=== PATIENT | male | born 1945 | race Caucasian/White ===

== ENCOUNTER → 2017-09-05 | Outpatient (CLI) | payer MEDICARE, OTHER ==
[~2017-09-05] MED LIST: ASPIR 8181 MG PO; ASPIRIN81 MG PO; FLAGYL250 MG PO; LEVAQUIN500 MG PO; LOSARTAN POTAS100 MG PO; NORCO 7.5-3251 EACH PO; PREDNISONE10 MG PO; ULTRAM 50MG50 MG PO; XANAX1 MG PO
--- NOTE | 2017-09-05 15:24 | Diagnostic Imaging Report ---
PROCEDURE:X-RAY ABDOMEN - KUB COMPARISON:Patients [facility], DX, ABDOMEN-1VIEW (KUB), 05/24/2017, 10:40. INDICATIONS:calculus of kidney FINDINGS: There is a non-obstructed bowel-gas pattern. Previously described left cortical renal calcification and renal calculi are not clearly identified on today's exam. There are no acute osseous abnormalities. The lung bases are clear. CONCLUSION: Previously described left cortical renal calcification and renal calculi are not clearly identified on today's exam. Emily Ambrose M.D. Dictated by: Emily Ambrose M.D. on 09/05/2017 at 15:33 Electronically approved by: Emily Ambrose M.D. on 09/05/2017 at 15:33
== END ==
LOC: RAD 13:54
PROVIDERS: ATTEND Urology
DX: N20.0 Calculus of kidney (principal)
CPT/HCPCS: 74018

== ENCOUNTER → 2017-11-09 | Outpatient (CLI) | payer MEDICARE, OTHER ==
[~2017-11-09] MED LIST changes: +ALLEGRA ALLERG180 MG PO; +CLONAZEPAM1 MG PO; +LOSARTAN-HCTZ1 EACH PO; +MULTIVITAMINS1 EAC7 PO; +NORCO 5-325 TA1 EACH PO; +ZANTAC150 MG PO
--- NOTE | 2017-11-09 16:54 | Diagnostic Imaging Report ---
PROCEDURE:TESTICULAR DOPPLER ULTRASOUND COMPARISON:Testicular ultrasound 03/22/2016 INDICATIONS:Hydrocele TECHNIQUE: Velez-scale and color doppler images of the testicles and scrotal contents were obtained. Duplex imaging with spectral waveform analysis was performed of the testicular arteries and veins. FINDINGS: Please see testicular ultrasound from the same date for combined dictation. CONCLUSION: Please see testicular ultrasound from the same date for combined dictation. Dictated by: Sherif Burroughs M.D. on 11/09/2017 at 16:55 Electronically approved by: Sherif Burroughs M.D. on 11/09/2017 at 16:55
--- NOTE | 2017-11-09 17:03 | Diagnostic Imaging Report ---
PROCEDURE:TESTICULAR ULTRASOUND and TESTICULAR DOPPLER COMPARISON:Testicular ultrasound . INDICATIONS:Hydrocele TECHNIQUE: Velez-scale and color doppler images of the testicles and scrotal contents were obtained. Duplex imaging with spectral waveform analysis was performed of the testicular arteries and veins. FINDINGS: RIGHT SCROTUM: Testicle: 3.9 x 2.3 x 2.9 cm. Epididymal head: 1.2 x 0.8 x 0.9 cm. Heterogeneous right epididymis with multiple echogenic foci which may represent microlithiasis versus mobile debris. Hydrocele: None. Varicocele: None. LEFT SCROTUM: Testicle: 4.5 x 2.5 x 3.0 cm. 0.4 x 0.2 x 0.3 cm isoechoic pedunculated lesion off the left testes consistent with a small appendix. Epididymal head: 1.0 x 0.6 x 0.9 cm. Hydrocele: Moderate left hydrocele with minimal debris. Varicocele: None. Arterial and venous blood flow is documented to the bilateral testicles. CONCLUSION: 1. New heterogeneous right epididymis with multiple echogenic foci which may represent microlithiasis and mobile debris. Recommend short-term followup in 3 months. 2. Unchanged moderate left hydrocele. Dictated by: Sherif Burroughs M.D. on 11/09/2017 at 17:03 Electronically approved by: Sherif Burroughs M.D. on 11/09/2017 at 17:03
== END ==
LOC: US 14:26
PROVIDERS: ATTEND Urology
DX: N43.3 Hydrocele, unspecified (principal)
CPT/HCPCS: 76870; 93976

== ENCOUNTER → 2017-11-17 | Day surgery (SDC) | payer MEDICARE, OTHER ==
[2017-11-16 11:54] LABS: BASOPHILS # (AUTO) 0.1 (0.0-0.1); BASOPHILS % 0.7 % (0.0-1.0); EOSINOPHILS # (AUTO) 0.3 (0.0-0.4); EOSINOPHILS % 3.6 % (0.0-6.0); HEMATOCRIT 42.7 % (38.2-49.6); LYMPHOCYTES # (AUTO) 2.3 (1.0-3.2); MEAN CORPUSCULAR HGB CONC 35.1 g/dL (31-35); MEAN CORPUSCULAR VOLUME 94.1 fL (81-99); MONOCYTES # (AUTO) 0.9 (0.2-0.8); MONOCYTES % 10.5 % (4.4-11.3); NEUTROPHILS # (AUTO) 4.6 (2.1-6.9); NEUTROPHILS % 56.8 % (38.7-80.0); PLATELET COUNT 241 x10e3/uL (140-360); RED BLOOD COUNT 4.54 x10e6/uL (4.3-5.7); RED CELL DISTRIBUTION WIDTH 13.3 % (11.7-14.4)
[2017-11-16 12:10] LABS: ANION GAP 14.2 mmol/L (8-16); CALCIUM 9.3 mg/dL (8.4-10.2); CREATININE, SERUM 1.65 mg/dL (0.72-1.25); POTASSIUM 4.2 mmol/L (3.5-5.1)
[~2017-11-17] MED LIST changes: +BUPIVACAINE HCL 0.5% INJ 30 ML VIAL INJ ONE; +CEFAZOLIN SOD 1 GM VIAL ONE; +DEXAMETHASONE SOD PHOS INJ 4 MG/ML VIAL ONE; +FENTANYL CITRATE/PF 100MCG/2 ML INJ ONE; +LIDOCAINE HCL 1% 30ML-PF VIAL ONE; +LIDOCAINE HCL 2% LOCAL INJ 5 ML SDV VIAL INJ ONE; +MIDAZOLAM HCL 2 MG/2 ML VIAL ONE; +MORPHINE SULFATE 2 MG/ML SYR ONE; +ONDANSETRON HCL INJ 2 MG/ML VIAL ONE; +PROPOFOL IV EMULSION 10 MG/ML 20 ML VIAL ONE; +SEVOFLURANE INHAL SOLN 250 ML PEN BTL ONE
--- OUTSIDE RECORDS SUMMARY | 2017-11-17 08:03 | XMS REPORT ---
Author Author [facility] Address Unknown Phone Unavailable Care Team Providers Care Damage Assessor Name Role Phone KHALIDA TEJADA Unavailable Unavailable JS DOMINIQUE Unavailable Unavailable Problems This patient has no known problems. Allergies, Adverse Reactions, Alerts This patient has no known allergies or adverse reactions. Medications This patient has no known medications. Results Test Description Test Time Test Comments Text Results Atomic Results Result Comments US TESTICULAR DOPPLER LTD [place] [address] Patient Name: DELFINA COLLINS MR #: [id number] : 1945 Age/Sex: 72/M Req #: [id number] [facility] Physician: Ordered by: KHALIDA TEJADA MD Report #: [id number] Location: Room/Bed: Procedure: [id number] US/US TESTICULAR DOPPLER LTD Exam Date: 11/09/17 Exam Time: 1609 REPORT STATUS: Signed PROCEDURE: TESTICULAR DOPPLER ULTRASOUND COMPARISON: Testicular ultrasound 03/22/2016 INDICATIONS: Hydrocele TECHNIQUE: Velez-scale and color doppler images of the testicles and scrotal contents were obtained. Duplex imaging with spectral waveform analysis was performed of the testicular arteries and veins. FINDINGS: Please see testicular ultrasound from the same date for combined dictation. CONCLUSION: Please see testicular ultrasound from the same date for combined dictation. Dictated by: Alice Rosen M.D. on 11/09/2017 at 16:55 Electronically approved by: Alice Rosen M.D. on 11/09/2017 at 16:55 Dictated By: ALICE ROSEN MD 54 Transcribed By: LEANNE on 11/09/171654 COPY TO: KHALIDA TEJADA MD US TESTICULAR [place] [address] Patient Name: DELFINA COLLINS MR #: [id number] : 1945 Age/Sex: 72/M Req # : [id number] Adm Physician: Ordered by: KHALIDA TEJADA MD Report #: [id number] Location: Room/Bed: Procedure: [id number] US/US TESTICULAR Exam Date: 11/09/17 Exam Time: 1609 REPORT STATUS: Signed PROCEDURE: TESTICULAR ULTRASOUND and TESTICULAR DOPPLER COMPARISON: Testicular ultrasound . INDICATIONS : Hydrocele TECHNIQUE: Velez-scale and color doppler images of the testicles and scrotal contents were obtained. Duplex imaging with spectral waveform analysis was performed of the testicular arteries and veins. FINDINGS: RIGHT SCROTUM: Testicle: 3.9 x 2.3 x 2.9 cm. Epididymal head: 1.2 x 0.8 x 0.9 cm. Heterogeneous right epididymis with multiple echogenic foci which may represent microlithiasis versus mobile debris. Hydrocele: None. Varicocele: None. LEFT SCROTUM: Testicle: 4.5 x 2.5 x 3.0 cm. 0.4 x 0.2 x 0.3 cm isoechoic pedunculated lesion off the left testes consistent with a small appendix. Epididymal head: 1.0 x 0.6 x 0.9 cm. Hydrocele: Moderate left hydrocele with minimal debris. Varicocele: None. Arterial and venous blood flow is documented to the bilateral testicles. CONCLUSION: 1. New heterogeneous right epididymis with multiple echogenic foci which may represent microlithiasis and mobile debris. Recommend short -term followup in 3 months. 2. Unchanged moderate left hydrocele. Dictated by: Alice Rosen M.D. on 11/09/2017 at 17:03 Electronically approved by: Alice Rosen M.D. on 11/09/2017 at 17:03 Dictated By: ALICE ROSEN MD 02 Transcribed By: LEANNE on 11/09/171702 COPY TO: KHALIDA TEJADA MD ABDOMEN-1VIEW (KUB) [place] [address] Patient Name: DELFINA COLLINS MR #: [id number] : 1945 Age/Sex: 71/M Req #: [id number] Adm Physician: Ordered by: KHALIDA TEJADA MD Report #: [id number] Location: RAD Room/Bed: Procedure: [id number] DX/ABDOMEN-1VIEW (KUB) Exam Date: 09/05/17 Exam Time: 1350 REPORT STATUS: Signed PROCEDURE: X-RAY ABDOMEN - KUB COMPARISON: [facility], DX, ABDOMEN-1VIEW (KUB), 2016, 10:40. INDICATIONS: calculus of kidney FINDINGS: There is a non-obstructed bowel-gas pattern. Previously described left cortical renal calcification and renal calculi are not clearly identified on today's exam. There are no acute osseous abnormalities. The lung bases are clear. CONCLUSION: Previously described left cortical renal calcification and renal calculi are not clearly identified on today's exam. Emily Kerr M.D. Dictated by: Emily Kerr M.D. on 09/05/2017 at 15:33 Electronically approved by: Emily Kerr M.D. on 09/05/2017 at 15:33 Dictated By: SHAUNA KERR MD, MD 1533 Transcribed By : LEANNE on 09/05/17 1533 COPY TO: KHALIDA TEJADA MD CHEST SINGLE (PORTABLE) [place] [address] Patient Name: DELFINA COLLINS MR #: [id number] : 1945 Age/Sex: 71/M Req #: [id number] Adm Physician: Ordered by: CARIN PACHECO CLAIM ADJUSTER Report #: [id number] Location: ER Room/Bed: Procedure: [id number] DX/CHEST SINGLE (PORTABLE) Exam Date: 07/10/17 Exam Time: 1035 REPORT STATUS: Signed PROCEDURE: A single AP view of the chest. COMPARISON: None. INDICATIONS: FLU LIKE SYMPTOMS FINDINGS: Lines/tubes: None. Lungs: The lungs are well inflated and clear. There is no evidence of pneumonia or pulmonary edema. Pleura: There is no pleural effusion or pneumothorax. Heart and mediastinum: The heart and the mediastinum are unremarkable. Bones: No acute bony abnormality. Degenerative changes of the thoracic spine. IMPRESSION: No acute radiographic abnormality. Dictated by: Fahad Rubin M.D. on 07/10/2017 at 11:15 Electronically approved by: Fahad Rubin M.D. on 07/10/2017 at 11:15 Dictated By: FAHAD RUBIN MD 1115 Transcribed By: LEANNE on 07/10/17 1115 COPY TO: CARIN PACHECO CLAIM ADJUSTER ABDOMEN-1VIEW (KUB) [place] [address] Patient Name: DELFINA COLLINS MR #: [id number] : 1945 Age/Sex: 71/M Req #: [id number] Adm Physician: Ordered by: KHALIDA TEJADA MD Report #: [id number] Location: [facility] Room/Bed: Procedure: [id number] DX/ABDOMEN-1VIEW (KUB) Exam Date: 05/24/17 Exam Time: 1040 REPORT STATUS: Signed PROCEDURE: X-RAY ABDOMEN - KUB COMPARISON: None. INDICATIONS: CALCULUS OF KIDNEY FINDINGS: Multiple calcifications projecting over the left renal shadows are unchanged, measuring up to 8 mm, some of which were shown to represent cortical calcifications on CT abdomen and pelvis 02/10/2016.. 4 mm calcification projects over the upper pole of the right renal shadow. Left hemipelvic round calcification is unchanged and likely represents a phlebolith. Bowel gas pattern is nonobstructive. No organomegaly. Regional skeletal structures are grossly intact. CONCLUSION: Unchanged left renal cortical calcification with additional nonobstructing left renal calculi. Right upper pole renal calculi as above. Dictated by: Eagle Barreto M.D. on 05/24/2017 at 11:30 Electronically approved by: Eagle Barreto M.D. on 05/24/2017 at 11:30 Dictated By: EAGLE BARRETO MD 113 Transcribed By: LEANNE on 05/24/171129 COPY TO: KHALIDA TEJADA MD
--- NOTE | 2017-11-17 10:02 | Operative Report ---
DATE OF PROCEDURE: November 17, 2017 PREOPERATIVE DIAGNOSIS: Left-sided hydrocele. POSTOPERATIVE DIAGNOSIS: Left-sided hydrocele with appendix testicle. PROCEDURES 1. Left-sided hydrocele repair (entirely separate procedure for diagnosis of left hydrocele). 2. Excision of left appendix testicle (entirely separate procedure for appendix testis). ANESTHESIA: General. ESTIMATED BLOOD LOSS: Minimal. COMPLICATIONS: None. INDICATIONS FOR PROCEDURE: Mr. Tobar is a 72-year-old male with symptomatic left-sided hydrocele, which has been growing in size. He and I had a long discussion regarding the alternatives, the risks and the benefits, including doing nothing, excision/repair. He voiced an understanding of the options, the alternatives, the risks and the benefits, including any indicated procedures, and he elected to proceed. PROCEDURE IN DETAIL: After informed consent was obtained, the patient was taken to the operative suite and placed supine on the operating table and underwent general anesthesia by the anesthesia service. The patient was placed in the supine position and sterilely prepped and draped in the standard fashion for the proposed surgery. An incision was made along the midline raphe, delivering the testicle extravaginally. The tunica vaginalis was then sharply incised, revealing approximately 100 mL of fluid. Capacity Manager section of the hydrocele sac was removed and sent off the table as a specimen. At this time, it was sewn back in a bottle-neck fashion to the inferior aspect. Of note, there was a very large, pendulous appendix testicle. This was excised with Bovie electrocautery and passed off the table as a separate specimen to prevent torsion. At this time, the patient's testicle was placed back in normal anatomic location and position. The wound was irrigated. The cremaster was closed with a running Vicryl stitch. The skin was closed with interrupted horizontal mattress 3-0 chromic gut sutures. The wound was dressed. The patient was awakened from anesthesia and transported to the recovery room in excellent condition. No untoward effects were noted. All sponge and instrument counts were correct times 2. Job#: [id number]
== END | disposition home or self-care (01) ==
LOC: OR 08:01
PROVIDERS: ATTEND Urology
DX: N43.3 Hydrocele, unspecified (principal); Q55.29 Other congenital malformations of testis and scrotum; I10 Essential (primary) hypertension; K21.9 Gastro-esophageal reflux disease without esophagitis; Z88.2 Allergy status to sulfonamides; J18.9 Pneumonia, unspecified organism; F41.9 Anxiety disorder, unspecified; Z01.812 Encounter for preprocedural laboratory examination
CPT/HCPCS: 36415; 54512; 55060; 80048; 85025; 88304; J0690; J1100; J2001; J2250; J2270; J2405

== ENCOUNTER → 2018-04-30 | Outpatient (CLI) | payer MEDICARE, OTHER ==
[~2018-04-30] MED LIST changes: -BUPIVACAINE HCL 0.5% INJ 30 ML VIAL INJ ONE; -CEFAZOLIN SOD 1 GM VIAL ONE; -DEXAMETHASONE SOD PHOS INJ 4 MG/ML VIAL ONE; -FENTANYL CITRATE/PF 100MCG/2 ML INJ ONE; -LIDOCAINE HCL 1% 30ML-PF VIAL ONE; -LIDOCAINE HCL 2% LOCAL INJ 5 ML SDV VIAL INJ ONE; -MIDAZOLAM HCL 2 MG/2 ML VIAL ONE; -MORPHINE SULFATE 2 MG/ML SYR ONE; -ONDANSETRON HCL INJ 2 MG/ML VIAL ONE; -PROPOFOL IV EMULSION 10 MG/ML 20 ML VIAL ONE; -SEVOFLURANE INHAL SOLN 250 ML PEN BTL ONE
--- NOTE | 2018-04-30 14:00 | Diagnostic Imaging Report ---
EXAMINATION: Scrotal ultrasound CLINICAL INDICATION: Spermatocele. COMPARISON: 11/09/2017. TECHNIQUE: Grayscale and color Doppler evaluation of the scrotum was performed in transverse and longitudinal planes. Supplemental color Doppler and spectral waveform analysis was performed FINDINGS: The right testicle measures 4.4 x 2.4 x 3 cm. Uniform echotexture without focal mass lesion.. The right epididymis measures 1.1 x 1.1 x 1 cm. Unchanged heterogeneous appearance of the right epididymis with multiple punctate echogenic foci seen throughout.. There is no evidence of right hydrocele or varicocele. There is normal arterial and venous flow to the right testicle, without evidence of torsion. The left testicle measures 4.2 x 2.7 x 2.9 cm. There are no masses or calcifications.. The left epididymis measures 1.2 x 1 x 0.8 cm. No nodules or masses.. There is no evidence of left varicocele. Stable moderate hydrocele. There is normal arterial and venous flow to the left testicle without evidence of torsion. The scrotum has a normal appearance, without focal lesions. Impression: Stable heterogeneity of the right epididymis with multiple punctate echogenic foci, which likely represent dystrophic calcifications or microlithiasis. Additional one-year follow-up scrotal ultrasound is suggested to document continued stability. No intratesticular masses. Stable moderate left hydrocele. Signed by: Dr. Vinicio Eldridge M.D. on 04/30/2018 1:57 PM
== END ==
LOC: US 12:50
PROVIDERS: ATTEND Urology
DX: N43.40 Spermatocele of epididymis, unspecified (principal)
CPT/HCPCS: 76870; 93976

== ENCOUNTER 2018-11-22 08:23 | Emergency (ER) | payer MEDICARE, OTHER ==
[~2018-11-22] VITALS: Ht 172.7 cm; Wt 124.7 kg
[2018-11-22 17:05] VITALS: BP 118/73
== END 2018-11-22 10:35 | disposition home or self-care (01) ==
LOC: ER 08:23
DX: R09.89 Other specified symptoms and signs involving the circulatory and respiratory systems (principal); T18.128A Food in esophagus causing other injury, initial encounter; I10 Essential (primary) hypertension; E11.9 Type 2 diabetes mellitus without complications; E78.5 Hyperlipidemia, unspecified
CPT/HCPCS: 99282

== ENCOUNTER → 2019-04-15 | Outpatient (CLI) | payer MEDICARE, OTHER ==
[~2019-04-15] MED LIST changes: +GADOBENATE DIMEGLUMINE 1 ML IV ONE
[2019-04-15 13:58] LABS: CREATININE, SERUM 1.46 mg/dL (0.72-1.25)
--- NOTE | 2019-04-15 15:39 | Diagnostic Imaging Report ---
TECHNIQUE: Magnetic resonance imaging of the left foot was performed without and with injected contrast. 20 cc of MultiHance. HISTORY: Pain COMPARISON: None available. DISCUSSION: No fracture. 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 Generalized soft tissue edema and swelling of the foot. No visualized mass or fluid collection. The intermetatarsal spaces are clear. No visualized neuroma. 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 Signed by: Dr. Kwaku Swanson M.D. on 04/15/2019 3:35 PM
== END ==
LOC: MRI 13:06
PROVIDERS: ATTEND Podiatrist
DX: R22.41 Localized swelling, mass and lump, right lower limb (principal)
CPT/HCPCS: 36415; 73720; 82565; 84520; A9577

== ENCOUNTER 2019-06-03 02:04 | Emergency (ER) | payer MEDICARE, OTHER ==
[~2019-06-03] VITALS: Ht 172.7 cm; Wt 124.7 kg
[~2019-06-03 02:04] MED LIST changes: -GADOBENATE DIMEGLUMINE 1 ML IV ONE
[2019-06-03 02:56] LABS: BILIRUBIN,URINE NEGATIVE (NEGATIVE); CLARITY,URINE CLEAR (CLEAR); COLOR,URINE YELLOW (YELLOW); KETONES,URINE NEGATIVE (NEGATIVE); LEUKOCYTE ESTERASE ,URINE NEGATIVE (NEGATIVE); NITRITE,URINE NEGATIVE (NEGATIVE); PROTEIN,URINE DIPSTICK NEGATIVE (NEGATIVE); URINE UROBILINOGEN 0.2 mg/dL (0.2 - 1)
[2019-06-03 03:08] LABS: RBC,URINE 0-5 /HPF (0-5); WBC,URINE (MAN) 0-5 /HPF (0-5)
--- NOTE | 2019-06-03 04:52 | Diagnostic Imaging Report ---
X-RAY CHEST 1 VIEW, X-RAY RIBS 3 VIEWS HISTORY: Pain. COMPARISON: None available. FINDINGS: Mild cardiomegaly. Lungs clear. No pleural effusion. Normal upper abdomen. Bones: Degenerative changes in the spine. No displaced rib fracture. Osseous alignment is within normal limits. Joints: The joint spaces are well-maintained. Soft tissues: The soft tissues appear unremarkable. IMPRESSION: No acute radiographic abnormality. Degenerative changes in the spine. Mild cardiomegaly. Signed by: Jose Min DO on 06/03/2019 4:49 AM
[2019-06-03] MEDS ORDERED: HYDROCODONE/APAP 5MG-325MG TAB PO ONE (05:00)
== END 2019-06-03 05:21 | disposition home or self-care (01) ==
LOC: ER 02:04
DX: M54.6 Pain in thoracic spine (principal); S29.011A Strain of muscle and tendon of front wall of thorax, initial encounter; S29.012A Strain of muscle and tendon of back wall of thorax, initial encounter; X50.0XXA Overexertion from strenuous movement or load, initial encounter; Y92.008 Other place in unspecified non-institutional (private) residence as the place of occurrence of the external cause; I10 Essential (primary) hypertension; E11.9 Type 2 diabetes mellitus without complications; E78.5 Hyperlipidemia, unspecified
CPT/HCPCS: 71101; 81001; 93005; 99283

== ENCOUNTER → 2019-09-27 | Outpatient (CLI) | payer MEDICARE, OTHER ==
--- NOTE | 2019-09-27 15:38 | Diagnostic Imaging Report ---
Exam: KUB - 2 views Indication: Renal calculi Comparison: None Findings: Multiple calcific densities overlying the left renal upper pole and mid pole measuring up to 7 mm. No radiographic apparent right renal calculi. Nonobstructive bowel gas pattern. No free air. Visualized lung bases appear clear. No acute osseous injury. Impression: Left upper and mid pole renal Ricardo George measure up to 7 mm. No radiographically apparent right renal calculi. Signed by: Miguel Ayoub MD on 09/27/2019 3:36 PM
== END ==
LOC: RAD 14:37
PROVIDERS: ATTEND Urology
DX: N20.0 Calculus of kidney (principal)
CPT/HCPCS: 74018

== ENCOUNTER → 2019-10-25 | Day surgery (SDC) | payer MEDICARE, OTHER ==
--- NOTE | 2019-10-22 12:01 | Diagnostic Imaging Report ---
EXAMINATION: CHEST 2 VIEWS INDICATION: History of kidney stone. ^[id number] ^1148 ^PRE OP CLEARANCE COMPARISON: 02/10/2016 FINDINGS: TUBES and LINES: None. LUNGS: Lungs are well inflated. Lungs are clear. There is no evidence of pneumonia or pulmonary edema. PLEURA: No pleural effusion or pneumothorax. HEART AND MEDIASTINUM: The cardiomediastinal silhouette is unremarkable. BONES AND SOFT TISSUES: No acute osseous lesion. Soft tissues are unremarkable. UPPER ABDOMEN: No free air under the diaphragm. IMPRESSION: No acute thoracic abnormality. Signed by: Dr. [place] M.D. on 10/22/2019 11:58 AM
[2019-10-22 12:18] LABS: BASOPHILS # (AUTO) 0.1 (0.0-0.1); BASOPHILS % 0.6 % (0.0-1.0); EOSINOPHILS # (AUTO) 0.1 (0.0-0.4); EOSINOPHILS % 1.7 % (0.0-6.0); HEMATOCRIT 43.3 % (38.2-49.6); HEMOGLOBIN 14.8 g/dL (14.0-18.0); LYMPHOCYTES % 23.8 % (18.0-39.1); MEAN CORPUSCULAR HEMOGLOBIN 33.3 pg (28-32); MEAN CORPUSCULAR HGB CONC 34.2 g/dL (31-35); MEAN CORPUSCULAR VOLUME 97.3 fL (81-99); MONOCYTES # (AUTO) 0.8 (0.2-0.8); MONOCYTES % 10.2 % (4.4-11.3); NEUTROPHILS # (AUTO) 5.2 (2.1-6.9); NEUTROPHILS % 63.3 % (38.7-80.0); PLATELET COUNT 268 x10e3/uL (140-360); RED BLOOD COUNT 4.45 x10e6/uL (4.3-5.7); RED CELL DISTRIBUTION WIDTH 14.5 % (11.7-14.4)
[2019-10-22 12:36] LABS: CALCIUM 9.2 mg/dL (8.4-10.2); CREATININE, SERUM 1.66 mg/dL (0.72-1.25)
[~2019-10-25] MED LIST changes: +ALLEGRA ALLERGY60 MG PO; +CEFTRIAXONE SOD 1 GM/NS 50 ML 50 ML IV ONE; +DEXAMETHASONE SOD PHOS INJ 4 MG/ML VIAL ONE; +LIDOCAINE HCL 2% LOCAL INJ 5 ML SDV VIAL INJ ONE; +PROPOFOL IV EMULSION 10 MG/ML 20 ML VIAL ONE; +SEVOFLURANE INHAL SOLN 250 ML PEN BTL ONE; +SYMBICORT 16010.2 GM INH
--- NOTE | 2019-10-25 08:12 | Operative Report ---
DATE OF PROCEDURE: 10/25/2019 SURGEON: Mauricio Vigil MD PREOPERATIVE DIAGNOSES: 1. Left kidney stones. 2. Left renal colic, requiring hydrocodone narcotic. POSTOPERATIVE DIAGNOSES: 1. Left kidney stones. 2. Left renal colic, requiring hydrocodone narcotic. PROCEDURE: Staged shockwave lithotripsy, left side. ANESTHESIA: General. ESTIMATED BLOOD LOSS: Minimal. COMPLICATIONS: None. INDICATIONS: Mr. Tobar is a very pleasant 74-year-old male with a history of colic on the left side, requiring narcotic hydrocodone for intermittent pain relief. The patient and I had an extensive discussion regarding the alternatives, risks, and benefits. As the patient has almost presented to the emergency room, he and I feel this procedure is immediately medically necessary to correct kidney stone condition without immediate performance of this procedure. He would be at risk for serious adverse medical consequences such as obstruction of the kidney, infections, presentation to the ER where he may expose to COVID-19, and hospitalization for narcotic pain relief. He voiced understanding the options, alternatives, the risks and benefits, and elected to proceed. PROCEDURE IN DETAIL: After informed consent was obtained, the patient was taken to the operative suite, placed in supine on the operating table, underwent general anesthesia by Anesthesia Service. Stone was localized in the X, Y, and Z planes. Treatment was performed per treatment report. The patient tolerated the procedure well and was transferred to the recovery room in excellent condition. Mauricio Vigil MD ES/MODL /[id number] cc:
[2019-10-25 08:20] VITALS: BP 143/71
--- NOTE | 2019-10-25 09:42 | Diagnostic Imaging Report ---
Exam: KUB - 2 views Indication: Preoperative Comparison: KUB of 09/27/2019 Findings: Again seen are left renal calculi measuring up to 7 mm. No radiographically apparent right renal calculi. Nonobstructive bowel gas pattern. No free air. No acute osseous injury. Mild degenerative changes of both hip joints, sacroiliac joint, lumbar spine. Impression: Unchanged left renal calculi. No radiographically apparent right renal calculi. Signed by: Miguel Ayoub MD on 10/25/2019 9:39 AM
== END | disposition home or self-care (01) ==
LOC: OR 05:04
PROVIDERS: ATTEND Urology
DX: N20.0 Calculus of kidney (principal); N40.1 Benign prostatic hyperplasia with lower urinary tract symptoms; N13.8 Other obstructive and reflux uropathy; R39.14 Feeling of incomplete bladder emptying; R35.1 Nocturia; N39.0 Urinary tract infection, site not specified; N52.9 Male erectile dysfunction, unspecified; N43.3 Hydrocele, unspecified; I10 Essential (primary) hypertension; E66.01 Morbid (severe) obesity due to excess calories; Z91.048 Other nonmedicinal substance allergy status; Z88.2 Allergy status to sulfonamides; Z01.810 Encounter for preprocedural cardiovascular examination; Z01.818 Encounter for other preprocedural examination; Z79.82 Long term (current) use of aspirin; Z68.41 Body mass index [BMI] 40.0-44.9, adult; Z87.891 Personal history of nicotine dependence; Z84.1 Family history of disorders of kidney and ureter
CPT/HCPCS: 36415; 50590; 71046; 74018; 80048; 85025; 93005; J0696; J1100; J2001; J2704

== ENCOUNTER 2020-02-04 02:29 | Inpatient (IN) | payer MEDICARE, OTHER ==
[~2020-02-04] VITALS: Ht 175.3 cm; Wt 139.7 kg
[~2020-02-04 02:29] MED LIST changes: -CEFTRIAXONE SOD 1 GM/NS 50 ML 50 ML IV ONE; -DEXAMETHASONE SOD PHOS INJ 4 MG/ML VIAL ONE; -LIDOCAINE HCL 2% LOCAL INJ 5 ML SDV VIAL INJ ONE; -PROPOFOL IV EMULSION 10 MG/ML 20 ML VIAL ONE; -SEVOFLURANE INHAL SOLN 250 ML PEN BTL ONE
[2020-02-04] MEDS ORDERED: PIPER-TAZ 3.375 GM 50 ML IV STA (02:42)
--- NOTE | 2020-02-04 02:44 | Emergency Department Note ---
History of Present Illnes History of Present Illness History of Present Illness This is a 74 year old male brought by EMS for evaluation of ingestion of 2 x vicodens prior to arrival . Arrival Mode: [place] Onset (how long ago): second(s) Severity: mild Onset quality: gradual Duration (how long): hour(s) Timing of current episode: constant Progression: unchanged Chronicity: new Relieving factors: none Exacerbating factors: none Associated symptoms: Reports other Treatments prior to arrival: none Past Medical/Family History Physician Review I have reviewed the patient's past medical and family history. Any updates have been documented here. Past Medical History Recent Fever: No Clinical Suspicion of Infectio: No New/Unexplained Change in Ment: No Past Medical History: Hypertension, Diabetes, Kidney Stones, Hyperlipedemia Other Medical History: Diverticulitis HERNIA Past Surgical History: Cholecysctectomy, Hernia Repair Other Surgery: DOUBLE HERNIA Social History Smoking Cessation: Never Smoker Alcohol Use: None Any Illegal Drug Use: No Other Last Tetanus: UNK Review of Systems Review of Systems Constitutional: Reports no symptoms EENTM: Reports no symptoms Cardiovascular: Reports no symptoms Respiratory: Reports no symptoms Gastrointestinal: Reports no symptoms Genitourinary: Reports no symptoms Musculoskeletal: Reports no symptoms Integumentary: Reports no symptoms Neurological: Reports no symptoms Psychological: Reports anxiety Endocrine: Reports no symptoms Hematological/Lymphatic: Reports no symptoms Physical Exam Related Data Allergies: Coded Allergies: Sulfa (Sulfonamide Antibiotics) (Verified Allergy, Unknown, 10/21/19) Vital signs reviewed: Yes Physical Exam CONSTITUTIONAL Constitutional: Present morbidly obese HENT HENT: Present normocephalic, Present atraumatic, Present oropharynx clear/moist, Present nose normal HENT L/R: Present left ext ear normal, Present right ext ear normal EYES Eyes: Reports PERRL, Reports conjunctivae normal NECK Neck: Present ROM normal PULMONARY Pulmonary: Present effort normal, Present breath sounds normal CARDIOVASCULAR Cardiovascular: Present irregular rhythm, Present tachycardia, Present LLE edema, Present RLE edema GASTROINTESTINAL Abdominal: Present soft, Present nontender, Present bowel sounds normal GENITOURINARY Genitourinary: Present exam deferred SKIN Skin: Present warm, Present dry MUSCULOSKELETAL Musculoskeletal: Present edema NEUROLOGICAL Neurological: Present alert, Present oriented x 3, Present no gross motor or sensory deficits PSYCHOLOGICAL Psychological: Present mood/affect normal, Present judgement normal Results Laboratory Lab results reviewed: Yes Laboratory comments Laboratory Tests Test 02/04/20 04:37 02/04/20 02:38 Urine Color Yellow (YELLOW) Urine Clarity Clear (CLEAR) Urine pH 5.5 (5 - 7) Urine Specific [place] 1.025 (1.010-1.025) Urine Protein Negative (NEGATIVE) Urine Glucose (UA) Negative (NEGATIVE) Urine Ketones Negative (NEGATIVE) Urine Blood Trace (NEGATIVE) Urine Nitrite Negative (NEGATIVE) Urine Bilirubin Negative (NEGATIVE) Urine Urobilinogen 0.2 mg/dL (0.2 - 1) Urine Leukocyte Esterase Negative (NEGATIVE) Urine RBC 6-10 /HPF (0-5) Urine WBC 6-10 /HPF (0-5) Urine Epithelial Cells Few /LPF (NONE) Urine Bacteria Few /HPF (NONE) Urine Mucus Many (RARE) Lactic Acid Level 2.9 mmol/L (0.5-2.0) 2.2 mmol/L (0.5-2.0) White Blood Count 16.26 x10e3/uL (4.8-10.8) Red Blood Count 4.33 x10e6/uL (4.3-5.7) Hemoglobin 14.2 g/dL (14.0-18.0) Hematocrit 42.7 % (38.2-49.6) Mean Corpuscular Volume 98.6 fL (81-99) Mean Corpuscular Hemoglobin 32.8 pg (28-32) Mean Corpuscular Hemoglobin Concent 33.3 g/dL (31-35) Red Cell Distribution Width 14.2 % (11.7-14.4) Platelet Count 279 x10e3/uL (140-360) Neutrophils (%) (Auto) 84.9 % (38.7-80.0) Lymphocytes (%) (Auto) 6.5 % (18.0-39.1) Monocytes (%) (Auto) 7.3 % (4.4-11.3) Eosinophils (%) (Auto) 0.4 % (0.0-6.0) Basophils (%) (Auto) 0.3 % (0.0-1.0) Neutrophils # (Auto) 13.8 (2.1-6.9) Lymphocytes # (Auto) 1.1 (1.0-3.2) Monocytes # (Auto) 1.2 (0.2-0.8) Eosinophils # (Auto) 0.1 (0.0-0.4) Basophils # (Auto) 0.1 (0.0-0.1) Absolute Immature Granulocyte (auto 0.09 x10e3/uL (0-0.1) Sodium Level 141 mmol/L (136-145) Potassium Level 4.1 mmol/L (3.5-5.1) Chloride Level 103 mmol/L (98-107) Carbon Dioxide Level 26 mmol/L (22-29) Anion Gap 16.1 mmol/L (8-16) Blood Urea Nitrogen 23 mg/dL (7-26) Creatinine 1.83 mg/dL (0.72-1.25) Estimat Glomerular Filtration Rate 37 ML/MIN (60-) BUN/Creatinine Ratio 13 (6-25) Glucose Level 107 mg/dL (74-118) Calcium Level 9.5 mg/dL (8.4-10.2) Total Bilirubin 0.7 mg/dL (0.2-1.2) Aspartate Amino Transf (AST/SGOT) 29 IU/L (5-34) Alanine Aminotransferase (ALT/SGPT) 31 IU/L (0-55) Alkaline Phosphatase 51 IU/L (40-150) Total Protein 7.0 g/dL (6.5-8.1) Albumin 4.1 g/dL (3.5-5.0) Globulin 2.9 g/dL (2.3-3.5) Albumin/Globulin Ratio 1.4 (0.8-2.0) Procedures 12 Lead ECG Interpretation ECG Interpretation : ECG: ECG 1 Fermentation Manager: Interpreted by ED physician Date: Feb 04, 2020 Time: 02:45 Rhythm: atrial fibrillation Rate: tachycardia BPM: 115 QRS axis: normal ST segments normal: Yes T waves normal: Yes Assessment & Plan Medical Decision Making MDM 74 yom with accidental ingestion of 2 x vicoden however upon arrival patient with fevers. Diff Dx : COVID-19 infection, sepsis, pneumonia, UTI considered. Source of fever undetermined. Plan to admit pending COVID-19 test Assessment & Plan Final Impression: (1) Renal insufficiency (2) Lactic acid acidosis (3) Fever (4) Atrial fibrillation Depart Disposition: ADMITTED Home Meds Active Scripts Cephalexin Monohydrate (KEFLEX) 500 Mg Capsule, 500 MG PO QID for 10 Days, #20 CAP 0 Refills Prov:ASHLEY PEOPLES FLEET MAINTENANCE MANAGER 02/06/20 Furosemide (FUROSEMIDE) 20 Mg Tablet, 20 MG PO DAILY for 14 Days, #14 TAB 0 Refills Prov:ASHLEY PEOPLES FLEET MAINTENANCE MANAGER 02/06/20 Acetaminophen (ACETAMINOPHEN) 325 Mg Tablet, 650 MG PO Q4H PRN for Mild Pain (1- 3) or Fever>100.8 for 14 Days, #30 TAB Prov:ASHLEY PEOPLES FLEET MAINTENANCE MANAGER 02/06/20 Reported Medications Fexofenadine Hcl (DONALD ALLERGY) 60 Mg Tablet, 60 MG PO DAILY THERAPEUTICALLY SUBSTITUTED WITH CLARITIN 10MG 10/25/19 Budesonide/Formoterol Fumarate (SYMBICORT 160-4.5 MCG INHALER) 10.2 Gm Hfa.aer.ad, 1 PUMP INH DAILY 10/21/19 Clonazepam (CLONAZEPAM) 1 Mg Tablet, 1 MG PO HS, TAB 11/16/17 Hydrocodone Bit/Acetaminophen (NORCO 5-325 TABLET) 1 Each Tablet, 1 EACH PO PRN, TAB 11/16/17 Losartan/Hydrochlorothiazide (LOSARTAN-HCTZ 50-12.5 MG TAB) 1 Each Tablet, PO DAILY 11/16/17 Aspirin (ASPIR 81) 81 Mg Tablet., 81 MG PO DAILY 04/27/16 EDIS QUINTANA DO Feb 04, 2020 02:44
[2020-02-04 03:05] LABS: BASOPHILS # (AUTO) 0.1 (0.0-0.1); BASOPHILS % 0.3 % (0.0-1.0); EOSINOPHILS # (AUTO) 0.1 (0.0-0.4); EOSINOPHILS % 0.4 % (0.0-6.0); HEMATOCRIT 42.7 % (38.2-49.6); HEMOGLOBIN 14.2 g/dL (14.0-18.0); LYMPHOCYTES # (AUTO) 1.1 (1.0-3.2); LYMPHOCYTES % 6.5 % (18.0-39.1); MEAN CORPUSCULAR HEMOGLOBIN 32.8 pg (28-32); MEAN CORPUSCULAR HGB CONC 33.3 g/dL (31-35); MEAN CORPUSCULAR VOLUME 98.6 fL (81-99); MONOCYTES # (AUTO) 1.2 (0.2-0.8); MONOCYTES % 7.3 % (4.4-11.3); NEUTROPHILS # (AUTO) 13.8 (2.1-6.9); NEUTROPHILS % 84.9 % (38.7-80.0); PLATELET COUNT 279 x10e3/uL (140-360); RED BLOOD COUNT 4.33 x10e6/uL (4.3-5.7); RED CELL DISTRIBUTION WIDTH 14.2 % (11.7-14.4)
[2020-02-04 03:24] LABS: ALBUMIN 4.1 g/dL (3.5-5.0); ALBUMIN/GLOBULIN RATIO 1.4 (0.8-2.0); ANION GAP 16.1 mmol/L (8-16); CALCIUM 9.5 mg/dL (8.4-10.2); CREATININE, SERUM 1.83 mg/dL (0.72-1.25); POTASSIUM 4.1 mmol/L (3.5-5.1)
[2020-02-04] MEDS ORDERED: SODIUM CHLORIDE 0.9% 1000ML 1,000 ML IV STA (03:25)
[2020-02-04] MEDS ORDERED: ACETAMINOPHEN 325 MG TAB PO ONE (04:15)
[2020-02-04 05:00] LABS: CLARITY,URINE CLEAR (CLEAR); COLOR,URINE YELLOW (YELLOW)
[2020-02-04 05:01] LABS: BILIRUBIN,URINE NEGATIVE (NEGATIVE); KETONES,URINE NEGATIVE (NEGATIVE); LEUKOCYTE ESTERASE ,URINE NEGATIVE (NEGATIVE); NITRITE,URINE NEGATIVE (NEGATIVE); PROTEIN,URINE DIPSTICK NEGATIVE (NEGATIVE); URINE UROBILINOGEN 0.2 mg/dL (0.2 - 1)
[2020-02-04 05:09] LABS: BACTERIA,URINE FEW /HPF; EPITHELIAL CELLS,URINE FEW /LPF
[2020-02-04 05:10] LABS: MUCUS,URINE MANY (RARE)
[2020-02-04] MEDS ORDERED: SODIUM CHLORIDE 0.9% 1000ML 1,000 ML IV ONE (05:45)
--- NOTE | 2020-02-04 07:33 | NUR ---
WALKING ROUNDS WITH CINDY HUTSON
[2020-02-04] MEDS ORDERED: ACETAMINOPHEN 325 MG TAB ONE (08:41)
--- NOTE | 2020-02-04 08:44 | Diagnostic Imaging Report ---
EXAMINATION: CHEST SINGLE (PORTABLE) INDICATION: Fever, shortness of breath COMPARISON: Chest radiograph of 10/22/2019 FINDINGS: LINES/TUBES:EKG leads overlie the chest. LUNGS:The lungs are well-inflated. No focal consolidation or pulmonary edema. The lateral costophrenic angles are excluded from the [id number]-vq-puvz. PLEURA:No pleural effusion or pneumothorax. MEDIASTINUM:The cardiomediastinal silhouette appears normal in size and shape. BONES/SOFT TISSUES:No acute osseous injury. ABDOMEN:No free air under the diaphragm. IMPRESSION: No focal pneumonia or pulmonary edema. Signed by: Miguel Ayoub MD on 02/04/2020 8:40 AM
[2020-02-04] MEDS: ACETAMINOPHEN 325 MG TAB PO PRN ×3 (08:45→20:47)
[2020-02-04] MEDS ORDERED: SODIUM CHLORIDE 0.9% 1000ML 1,000 ML IV SCH (09:15)
[2020-02-04] MEDS ORDERED: PIPER-TAZ 3.375 GM 50 ML IV ONE (09:15)
[2020-02-04] MEDS ORDERED: ONDANSETRON HCL INJ 2MG/ML 2ML 2 MG/ML VIAL IV PRN (09:30)
[2020-02-04] MEDS ORDERED: ASPIRIN 81 MG CHEW TAB PO ONE (09:30)
[2020-02-04 10:39] LABS: CREATINE KINASE MB 2.3 ng/mL (0-5.0)
[2020-02-04] MEDS: AZITHROMYCIN 500MG/NS 250 ML 250 ML IV SCH (11:01)
[2020-02-04] MEDS: SODIUM CHLORIDE 0.9% 1000ML 1,000 ML IV SCH ×2 (11:01→18:58)
[2020-02-04] MEDS: PIPER-TAZ 3.375 GM 50 ML IV SCH ×3 (11:01→22:27)
[2020-02-04 15:55] VITALS: BP 131/64
[2020-02-04 15:58] VITALS: BP 131/64
[2020-02-04 16:04] VITALS: BP 131/64
--- NOTE | 2020-02-04 17:11 | NUR ---
patient received from er via stretcher. see admit assess. sinus rhythm. NS at 100cc/hr. O2 3L [place]. vitals stable with no distress.
--- NOTE | 2020-02-04 18:59 | NUR ---
BSSR RECEIVED FROM RIOS HUTSON, PATIENT STABLE REMAINS ON DROPLET PRECAUTIONS, CURRENTLY RECEIVING IV HYDRATION 15CC/HR TOLERATING WELL, NO DISTRESS NOTED, CALL LIGHT WITHIN REACH, RESUME CARE OF PATIENT
[2020-02-04 19:05] LABS: CREATINE KINASE MB 9.5 ng/mL (0-5.0)
[2020-02-04 19:40] VITALS: BP 156/58
[2020-02-04] MEDS: HYDRALAZINE HCL 20 MG/ML VIAL IV PRN ×2 (20:31→20:47)
[2020-02-04 20:32] VITALS: BP 156/58
[2020-02-04 20:33] VITALS: BP 156/58
[2020-02-04] MEDS: CLONAZEPAM 1 MG TAB PO SCH (20:45)
[2020-02-04] MEDS: ENOXAPARIN SOD INJ 40 MG/0.4 ML SYR SC SCH (20:45)
[2020-02-04] MEDS: HYDROCODONE/APAP 5MG-325MG TAB PO PRN (23:10)
--- NOTE | 2020-02-04 23:27 | Diagnostic Imaging Report ---
EXAM: CT Chest WITHOUT contrast INDICATION: Leukocytosis, cough COMPARISON: Chest x-ray 02/04/2020 TECHNIQUE: Chest was scanned utilizing a multidetector helical scanner from the lung apex through the level of the adrenal glands without administration of IV contrast. Absence of intravenous contrast decreases sensitivity for detection of lymphadenopathy and vascular pathology. Coronal and sagittal reformations were obtained. Routine protocol was performed. IV CONTRAST: None COMPLICATIONS: None RADIATION DOSE: Total DLP: 488 mGy*cm Estimated effective dose: (DLP x 0.014 x size factor) mSv CTDIvol has been reviewed. It is below the limits set by the Radiation Protocol Committee (RPC). Dose modulation, iterative reconstruction, and/or weight based adjustment of the mA/kV was utilized to reduce the radiation dose to as low as reasonably achievable. FINDINGS: LINES/ TUBES: None. LUNGS AND AIRWAYS: Small benign callus for granuloma in the basal medial left lower lobe, otherwise the lungs are unremarkable. Mild smooth central bronchial wall thickening. PLEURA: The pleural spaces are clear. HEART AND MEDIASTINUM: The thyroid gland is normal. No mediastinal, hilar or axillary lymphadenopathy. The heart is normal in size. There is no pericardial effusion. Calcifications of the aorta and major branches including the coronary arteries. UPPER ABDOMEN: Partially visualized small nonobstructive bilateral renal calculi. Enlarged hypodense liver. BONES: Degenerative changes. SOFT TISSUES: Unremarkable. IMPRESSION: Subtle findings of bronchitis. Coronary artery calcific atherosclerosis. Small bilateral nonobstructive renal calculi. Hepatomegaly with hepatic steatosis. Signed by: Jose Min DO on 02/04/2020 11:24 PM
[2020-02-05] VITALS (9 sets, daily range): BP systolic 121–153; BP diastolic 55–82
--- NOTE | 2020-02-05 01:13 | NUR ---
Since pt was COVID negative, pt was requested to be transferred by Beauty Culturist Apprentice (Olinda Burden) from Rm 296 (covid room) to Rm 295 (non-covid room). Patient alert and oriented x3. Ambulatory with standby assist using walker. On IVF (NS at 125ml/hr). On scheduled IV antibiotic treatment. On 2L NC. Call orellana within reach.
--- NOTE | 2020-02-05 01:31 | NUR ---
BSSR GIVEN TO WESLY RN, PATIENT NEGATIVE COVID TRANSFERRED TO MED-SURG ROOM 295, CARE GIVEN OVER TO RN WESLY, UPDATED WITH PATIENT PLAN OF CARE, PENDING US LEFT LOWER EXTREMITY, BED ALARM IN PLACE, EDUCATED TO CALL DONT FALL, AM LABS ENDORSED TO WESLY FOR 5 AM
[2020-02-05] MEDS: SODIUM CHLORIDE 0.9% 1000ML 1,000 ML IV SCH ×3 (01:32→21:31)
[2020-02-05] MEDS: PIPER-TAZ 3.375 GM 50 ML IV SCH ×4 (04:18→22:25)
[2020-02-05] MEDS: BUDESONIDE/FORMOTEROL 160/4.5MCG INHALER INH SCH (07:00)
[2020-02-05 08:06] LABS: BASOPHILS # (AUTO) 0.1 (0.0-0.1); BASOPHILS % 0.5 % (0.0-1.0); EOSINOPHILS # (AUTO) 0.1 (0.0-0.4); EOSINOPHILS % 0.7 % (0.0-6.0); HEMATOCRIT 39.4 % (38.2-49.6); HEMOGLOBIN 12.7 g/dL (14.0-18.0); LYMPHOCYTES # (AUTO) 1.7 (1.0-3.2); LYMPHOCYTES % 16.3 % (18.0-39.1); MEAN CORPUSCULAR HEMOGLOBIN 32.7 pg (28-32); MEAN CORPUSCULAR HGB CONC 32.2 g/dL (31-35); MEAN CORPUSCULAR VOLUME 101.5 fL (81-99); MONOCYTES % 10.1 % (4.4-11.3); NEUTROPHILS # (AUTO) 7.4 (2.1-6.9); NEUTROPHILS % 71.9 % (38.7-80.0); PLATELET COUNT 192 x10e3/uL (140-360); RED BLOOD COUNT 3.88 x10e6/uL (4.3-5.7); RED CELL DISTRIBUTION WIDTH 14.6 % (11.7-14.4)
[2020-02-05 08:36] LABS: ALBUMIN 3.2 g/dL (3.5-5.0); ANION GAP 11.6 mmol/L (8-16); CALCIUM 8.3 mg/dL (8.4-10.2); CREATININE, SERUM 1.51 mg/dL (0.72-1.25); POTASSIUM 3.6 mmol/L (3.5-5.1)
[2020-02-05] MEDS: ASPIRIN 81 MG CHEW TAB PO SCH (09:03)
[2020-02-05] MEDS: LOSARTAN POTASSIUM 100 MG TAB PO SCH (09:04)
[2020-02-05] MEDS: LORATADINE 10 MG TAB PO SCH (09:04)
[2020-02-05] MEDS: HYDROCODONE/APAP 5MG-325MG TAB PO PRN (09:05)
[2020-02-05] MEDS: FAMOTIDINE 20 MG TAB PO SCH ×2 (09:11→17:30)
[2020-02-05 09:27] LABS: CHOL/HDL RATIO 3.8 (3.9-4.7)
[2020-02-05 09:47] LABS: THYROID STIMULATING HORMONE 0.921 uIU/mL (0.350-4.940)
--- NOTE | 2020-02-05 11:00 | Consultation ---
DATE OF CONSULTATION: Cardiac Consultation REASON FOR CONSULTATION: The patient is known to me, swelling of the left extremity, irregular heart rate noted on telemetry. HISTORY OF PRESENT ILLNESS: A 74-year-old gentleman, who is known with longstanding history of hypertension, anxiety, mild chronic renal insufficiency, and morbid obesity. The patient is seen and evaluated in our office in March of 2018, where at that time he had surgery for left hydrocele. He tolerated the surgery and he did well. He said he is followed by his PCP on monthly basis. The patient came to this institution because by mistake, he took 2 Vicodin. He was shaking after that and he is feeling jittery and anxious. He came to this institution. There was questionable fever and there was swelling of the left ankle and discoloration. His white blood cell count was elevated. He was given antibiotics. He was cultured, admitted for further management. Venous Doppler is ordered, but not done and cardiac consultation is obtained. On telemetry in the ER, it is noted the patient did have few irregular heart beating, so cardiac consultation is initiated. I visited with the patient, whom he denied categorically having any chest pain. He does have his usual easy fatigability. He said he twisted his ankle twice recently. He walks carefully with his walker. He is able to do sittings with walker at his own speed. At this level, there is no orthopnea, no paroxysmal nocturnal dyspnea, no syncope, and no presyncope. He said he was jittery. By mistake, he took 2 Vicodin and he was worried about it, so he came to the emergency room. He denied having any fever or any chills. REVIEW OF SYSTEMS: GENERAL: No fever. No chills. No weight loss. No weight gain. HEENT: Occasional lightheadedness, decreased hearing, and ringing in his ears. PULMONARY: Moderate shortness of breath on exertion. No pleuritic chest pain. No cough. No hemoptysis. CARDIAC: No angina. Feet swelling, which is chronic for him. He is asleep in a recliner because of back problem. GI: No hematemesis. No melena. : Increased frequency of urination. MUSCULOSKELETAL: Back pain, peripheral vascular, edema of the lower extremities. SKIN: No rashes. NEUROLOGICAL: Good memory. Abnormal gait. Walks with a walker. PAST MEDICAL HISTORY: 1. Hypertension. 2. Hypercholesterolemia. 3. Chronic renal insufficiency with baseline creatinine at 1.7 or so or 1.8. 4. Anxiety. 5. Kidney stone. 6. Bilateral inguinal hernia surgery. 7. Appendectomy. 8. Lithotripsy. 9. Left hydrocele surgery in 11/2017. SOCIAL HISTORY: He is . He stopped smoking in 2012. He was smoking one pack a day since age 19. No alcohol drinker. 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 He is taking care of his , who is having a little bit of dementia. HOME MEDICATIONS: Aspirin 81 mg a day, losartan/hydrochlorothiazide 50/12.5 one tablet a day, Nancy 180 mg a day, hydrocodone p.r.n., and Klonopin 0.5 mg at bedtime. ALLERGIES: SULFA. FAMILY HISTORY: Mother of breast cancer at age 55. Father at age 76 with CVA and myocardial infarction. No brothers, two sister, one of them is diabetic. Two healthy daughters. PHYSICAL EXAMINATION: VITAL SIGNS: Height of 5 feet 8 inches, weight of 280 pounds. Blood pressure 140/70, heart rate of 80, and respiratory rate of 18. HEENT: Pupils are equal and reactive. NECK: No elevation of jugular venous pulsation. CHEST: Clear to auscultation and percussion. HEART: PMI 5th left intercostal space. Normal first and second heart sounds. ABDOMEN: Soft with good bowel sounds. EXTREMITIES: No cyanosis. No clubbing. Mild peripheral edema. No Alexus sign. NEUROLOGICAL: Awake, alert, and oriented. No motor deficit. LABORATORY DATA: BUN of 23 and creatinine of 1.83. White blood cell counts are elevated at 16.2, hemoglobin 14.2, and hematocrit 43%. IMPRESSION AND PLAN: 1. The patient admitted following digestion of 2 Vicodin and he was very anxious about it. 2. Hypertensive heart disease. 3. Leg swelling and history of arthritis. 4. Obesity. 5. Abnormal gait. 6. Elevated white blood cell count and fever, started on antibiotics and he had culture. Cardiac swain, my recommendation is to continue his losartan, to continue his aspirin, deep venous thrombosis prophylaxis. We will review the venous Doppler when it is done. We will follow his blood culture and we will follow his progression with you. Case discussed and explained to the patient. Questions are answered. MD ANAY Goncalves/ELFEGO /[id number]
[2020-02-05] MEDS: AZITHROMYCIN 500MG/NS 250 ML 250 ML IV SCH (11:23)
[2020-02-05] MEDS: ENOXAPARIN SOD INJ 40 MG/0.4 ML SYR SC SCH (17:35)
[2020-02-05] MEDS: ACETAMINOPHEN 325 MG TAB PO PRN (18:21)
--- NOTE | 2020-02-05 19:00 | NUR ---
RECEIVED PATIENT IN BEDSIDE SHIFT REPORT. PATIENT RESTING IN RECLINER AT THIS TIME. NO PAIN NOTED. NO S&S OF DISTRESS NOTED. BED LOCKED IN LOWEST POSITION, SIDE RAILS UPX2, CALL LIGHT IN REACH.
--- NOTE | 2020-02-05 19:09 | NUR ---
BEDSIDE SHIFT REPORT GIVEN TO THE EDGE CUTTING MACHINE OPERATOR RN. PT DENIED FURTHER NEEDS.
[2020-02-05] MEDS: CLONAZEPAM 1 MG TAB PO SCH (21:31)
[2020-02-06] VITALS: BP 139/63
[2020-02-06] MEDS: HYDROCODONE/APAP 5MG-325MG TAB PO PRN (00:26)
[2020-02-06] MEDS: SODIUM CHLORIDE 0.9% 1000ML 1,000 ML IV SCH ×3 (01:30→10:50)
[2020-02-06 04:00] VITALS: BP 146/70
[2020-02-06] MEDS: PIPER-TAZ 3.375 GM 50 ML IV SCH ×3 (04:24→15:15)
[2020-02-06] MEDS: ACETAMINOPHEN 325 MG TAB PO PRN (05:14)
--- NOTE | 2020-02-06 05:24 | Progress Note ---
DATE: 02/05/2020 CONSULTING PHYSICIAN: Becky Jasso MD. SUBJECTIVE: The patient denies chills. States his left leg is tender at times and has an occasional cough. No fever. OBJECTIVE: VITAL SIGNS: From today, temperature 98.9, T-max 103.3, heart rate 91, blood pressure 153/73, respirations 20, oxygen saturation 98%. Intake and output 400 mL in and 1175 mL out. GENERAL: Supine, awake, and alert. LUNGS: Generally clear with some diminished bases, currently on room air. HEENT: EOMI. NECK: Supple. No JVD. CARDIOVASCULAR: Regular rate and rhythm without murmur. Normal saline infusing at 125 mL an hour. ABDOMEN: Soft. Bowel sounds x4 quads. No guarding. EXTREMITIES: No clubbing, cyanosis, or marked edema. He has left leg swelling and redness. NEUROLOGIC: GCS 15. Nonfocal. LABORATORY DATA: WBCs 10.33, hemoglobin 12.7, hematocrit 39.4, RBCs 3.88, platelets 192, neutrophils 71.9%. Sodium 139, potassium 3.6, chloride 107, CO2 24, BUN 15, creatinine 1.51, anion gap 11.6, estimated GFR 46, glucose 110. Hemoglobin A1c 5.5%. Lactic acid 1.4, calcium 8.3, magnesium 2.0, total bilirubin 0.7, AST 41, ALT 32, alkaline phosphatase 41, creatine kinase 510, CK-MB 5.0, troponin I 0.013. Total protein 6.4, albumin 3.2. Triglycerides 148, cholesterol 145, LDL 77, HDL 38. Thyroid-stimulating hormone 0.921. Lactic acid 1.4. Coronavirus PCR collected on 02/03, not detected. Blood cultures x2 show no growth after 48 hours. Preliminary urine culture is in progress with re-intubation required. CT of the chest done on 02/03 showed subtle findings of bronchitis, coronary artery calcific atherosclerosis, small bilateral nonobstructive renal calculi, hepatomegaly with hepatic steatosis. Today, bilateral lower extremity venous Doppler ultrasound was negative for DVT. ASSESSMENT/PLAN: 1. Sepsis with lactic acidosis, likely due to bronchitis and/or left lower extremity cellulitis. WBCs 10.3, improving. Continue Zosyn and azithromycin. Chest x-ray negative. Coronavirus negative. CT of the chest showed subtle findings of bronchitis. Isolation has been discontinued. 2. Inadvertent [place] ingestion, usually takes 1/2 tab [place], took 2 tabs at home, improving. 3. New onset atrial fibrillation with RVR, now heart rate control with heart rate in the 80s to 90s. Dr. Jasso's patient. Conveyor Operator following. 4. Left lower extremity swelling with cellulitis. Venous Doppler ultrasound negative for DVT. Continue antibiotics. 5. Acute kidney injury on chronic kidney disease stage 3, EGFR 46, creatinine 1.51. Continue IV fluids. Consider Nephrology consult if renal labs do not improve. BMP in a.m. 6. Controlled hypertension with chronic kidney disease stage 3, blood pressure 153/57. Continue losartan. Hold hydrochlorothiazide. 7. Chronic obstructive pulmonary disease without acute exacerbation. Symbicort resumed. Continue oxygen and wean to room air as tolerated. 8. Controlled type 2 diabetes mellitus with chronic kidney disease stage 3. Hemoglobin A1c 5.5%. Continue renal diabetic diet. Monitor fingerstick blood glucose before meals and at bedtime. 9. Morbid obesity with BMI of 41.8. Dietary restrictions, PT evaluation and treat. 10. Prophylaxis. Pepcid. TIME SPENT: 35 minutes. Billing code [id number]. Dictated by Jason Ocasio NP Dale Robles MD HWP/MODL /[id number]
[2020-02-06 05:54] LABS: BASOPHILS % 0.6 % (0.0-1.0); EOSINOPHILS # (AUTO) 0.2 (0.0-0.4); EOSINOPHILS % 3.4 % (0.0-6.0); HEMATOCRIT 35.7 % (38.2-49.6); HEMOGLOBIN 11.4 g/dL (14.0-18.0); LYMPHOCYTES # (AUTO) 1.7 (1.0-3.2); LYMPHOCYTES % 26.5 % (18.0-39.1); MEAN CORPUSCULAR HEMOGLOBIN 31.8 pg (28-32); MEAN CORPUSCULAR HGB CONC 31.9 g/dL (31-35); MEAN CORPUSCULAR VOLUME 99.7 fL (81-99); MONOCYTES % 15.2 % (4.4-11.3); NEUTROPHILS # (AUTO) 3.5 (2.1-6.9); PLATELET COUNT 211 x10e3/uL (140-360); RED BLOOD COUNT 3.58 x10e6/uL (4.3-5.7); RED CELL DISTRIBUTION WIDTH 14.7 % (11.7-14.4)
[2020-02-06 06:31] LABS: ANION GAP 11.8 mmol/L (8-16); CALCIUM 8.4 mg/dL (8.4-10.2); CREATININE, SERUM 1.37 mg/dL (0.72-1.25); POTASSIUM 3.8 mmol/L (3.5-5.1)
--- NOTE | 2020-02-06 06:45 | NUR ---
CALLED MD [facility] FOR PATIENT REQUEST OF A DOSE OF ANXIETY MEDS. NO ANSWER. WILL ATTEMPT AGAIN.
--- NOTE | 2020-02-06 07:30 | NUR ---
PT C/O REDNESS AND SWELLING ON LEFT LOWER EXTREMITY FROM YESTERDAY NIGHT. PAGED ASHLEY BHATTI AND INFORMED THE SAME.
[2020-02-06] MEDS: BUDESONIDE/FORMOTEROL 160/4.5MCG INHALER INH SCH (07:37)
[2020-02-06 08:36] VITALS: BP 139/64
[2020-02-06 08:53] VITALS: BP 139/64
[2020-02-06] MEDS: ASPIRIN 81 MG CHEW TAB PO SCH (09:04)
[2020-02-06] MEDS: LORATADINE 10 MG TAB PO SCH (09:04)
[2020-02-06] MEDS: LOSARTAN POTASSIUM 100 MG TAB PO SCH (09:05)
[2020-02-06] MEDS: FAMOTIDINE 20 MG TAB PO SCH ×2 (09:15→15:30)
[2020-02-06] MEDS: AZITHROMYCIN 500MG/NS 250 ML 250 ML IV SCH (10:50)
[2020-02-06 12:30] VITALS: BP 119/57
[2020-02-06] MEDS ORDERED: FUROSEMIDE20 MG PO (13:52)
[2020-02-06] MEDS ORDERED: ACETAMINOPHEN325 M1 PO (13:52)
[2020-02-06] MEDS ORDERED: KEFLEX500 MG PO (13:52)
[2020-02-06] MEDS ORDERED: ONDANSETRON HCL 4 MG ORAL DISINTEGRATING TAB PO PRN (14:15)
[2020-02-06] MEDS: ENOXAPARIN SOD INJ 40 MG/0.4 ML SYR SC SCH (16:00)
--- NOTE | 2020-02-06 16:03 | NUR ---
REVIEW OF SYSTEMS: GENERAL: No fever. No chills. No weight loss. No weight gain. HEENT: Occasional lightheadedness, decreased hearing, and ringing in his ears. PULMONARY: Moderate shortness of breath on exertion. No pleuritic chest pain. No cough. No hemoptysis. CARDIAC: No angina. Feet swelling, which is chronic for him. He is asleep in a recliner because of back problem. GI: No hematemesis. No melena. : Increased frequency of urination. MUSCULOSKELETAL: Back pain, peripheral vascular, edema of the lower extremities. SKIN: No rashes. NEUROLOGICAL: Good memory. Abnormal gait. Walks with a walker. PAST MEDICAL HISTORY: 1. Hypertension. 2. Hypercholesterolemia. 3. Chronic renal insufficiency with baseline creatinine at 1.7 or so or 1.8. 4. Anxiety. 5. Kidney stone. 6. Bilateral inguinal hernia surgery. 7. Appendectomy. 8. Lithotripsy. 9. Left hydrocele surgery in 11/2017. SOCIAL HISTORY: He is . He stopped smoking in 2012. He was smoking one pack a day since age 19. No alcohol drinker. 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 He is taking care of his , who is having a little bit of dementia. HOME MEDICATIONS: Aspirin 81 mg a day, losartan/hydrochlorothiazide 50/12.5 one tablet a day, Nancy 180 mg a day, hydrocodone p.r.n., and Klonopin 0.5 mg at bedtime. ALLERGIES: SULFA. FAMILY HISTORY: Mother of breast cancer at age 55. Father at age 76 with CVA and myocardial infarction. No brothers, two sister, one of them is diabetic. Two healthy daughters. [id number]
--- NOTE | 2020-02-06 16:50 | NUR ---
PT DISCHARGED HOME SAFELY WITH FAMILY MEMBER. TELE AND IV'S REMOVED. TIP INTACT. DRESSING APPLIED. D/C INSTRUCTIONS GIVEN. PT VERBALIZED UNDERSTANDING. RX GIVEN. PT ESCORTED BY THE TECH VIA WHEEL CHAIR TO THE PRIVATE AUTO AT THE FRONT ENTRANCE. PT DENIED FURTHER NEEDS.
--- NOTE | 2020-02-06 18:51 | Consultation ---
DATE OF CONSULTATION: HISTORY OF PRESENT ILLNESS: This is a 74-year-old gentleman, who has history of hypertension, anxiety, chronic kidney disease, and morbidly obese patient. The patient had surgery of his left hydrocele. The patient comes in with swelling of his left lower extremity. There was pus with no fever or chills. He was given antibiotic, venous Doppler was ordered. The patient is currently in the hospital. He is lying on bed. PAST MEDICAL HISTORY: Hypertension and anxiety. PAST SURGICAL HISTORY: As above. ALLERGIES: SULFA. SOCIAL HISTORY: There is no smoking, drug abuse, or alcohol abuse. FAMILY HISTORY: Otherwise unremarkable. MEDICATIONS: The patient is currently on Zosyn, Cozaar, and aspirin. PHYSICAL EXAMINATION: GENERAL: Currently alert and oriented, does not seem in acute distress. VITAL SIGNS: Stable, currently afebrile, when he first came in was 103. HEENT: He is not icteric. NECK: Supple. CHEST: Clear bilaterally. HEART: S1, S2. ABDOMEN: Soft. Bowel sounds present. EXTREMITIES: There is no edema. LABORATORY DATA: White count when he first came in was 16.2, came down to 5.6. His COVID-19 is negative. Blood cultures are otherwise unremarkable. IMPRESSION: Fever on admission. MD KRISTEN Huizar/ELFEGO /[id number]
--- NOTE | 2020-02-06 19:57 | Consultation ---
DATE OF CONSULTATION: ADDENDUM: Mr. Tobar who is a 74-year-old white male with history of obesity, comes in with some shortness of breath, but currently he is doing well and does not have redness on his right lower extremity. The patient was seen and examined. Chart reviewed. Discussed with the medical team at length. Please refer to my previous note. PLAN: He will be discharged home with Keflex 500 mg p.o. q.8 for 10 days. Keep the feet elevated, thigh-high elastic stocking to control his fluid heart condition. MD KRISTEN Huizar/ELFEGO /[id number]
--- NOTE | 2020-02-07 00:03 | Discharge Summary ---
PRIMARY CARE PHYSICIAN: Efraín Donnelly MD. CONSULTING PHYSICIANS: 1. Becky Jasso MD, with Cardiology. 2. Josh Griffiths MD, with Infectious Disease. CHIEF COMPLAINT: Fever and shaking after accidentally taking 2 Vicodin. HISTORY OF PRESENT ILLNESS: The patient is a 74-year-old male with history of fever for one day, who walked about a mile, had pain in his feet and took accidentally or inadvertently took 2 Vicodin. Instead of taking Tylenol, he took Vicodin or [place] by accident, which he thinks were 5 mg tablets. Afterwards he began to shake, which is new for him and he was anxious, but he normally takes 1/2 pill of the [place]. PAST MEDICAL HISTORY: Hypertension, diabetes, kidney stones, hyperlipidemia, diverticulitis, morbid obesity, anxiety, COPD, Nancy for seasonal allergies. PAST SURGICAL HISTORY: Appendectomy, cholecystectomy, double hernia repair on 10/24. He had staged shockwave lithotripsy of the left side. On 11/17/2017, he had a left hydrocele repair, excision of left appendix testicle. On 04/27/2016, he had a colonoscopy. FAMILY HISTORY: Mother of breast cancer at age 54. Father had an MT. SOCIAL HISTORY: History of tobacco use. is in her first stages of dementia and he takes care of her at home. ALLERGIES: SULFA. ADMITTING DIAGNOSES: 1. Sepsis with lactic acidosis, source unclear. 2. Accidental Vicodin ingestion. 3. New onset atrial fibrillation with rapid ventricular rate. 4. Controlled hypertension with chronic kidney disease 3. 5. Chronic obstructive pulmonary disease with acute exacerbation. 6. Controlled type 2 diabetes mellitus with chronic kidney disease 3. 7. Chronic kidney disease 3. 8. Morbid obesity with BMI of 41.8. DISCHARGE DIAGNOSES: 1. Sepsis with lactic acidosis, likely due to bronchitis and/or left lower extremity cellulitis. 2. Inadvertent [place] ingestion. 3. New onset atrial fibrillation with rapid ventricular rate, now heart rate controlled. 4. Left lower extremity swelling with cellulitis. 5. Acute kidney injury on chronic kidney disease stage 3. 6. Controlled hypertension with chronic kidney disease 3. 7. Chronic obstructive pulmonary disease without acute exacerbation. 8. Controlled type 2 diabetes mellitus with chronic kidney disease 3. 9. Chronic kidney disease 3. 10. Morbid obesity with BMI of 41.8. On 02/03; WBC 16.26, hemoglobin 14.2, hematocrit 42.7, platelets 279. ABG showed pH 7.30, pCO2 53.5, pO2 31, HC03 26.7,, total CO2 28, oxygen saturation 52%, base excess 0. Sodium 141, potassium 4.1, chloride 103, CO2 of 26, anion gap 16.1, BUN 23, creatinine 1.83, estimated GFR 37, calcium 9.5, total bilirubin 0.7, AST 29, ALT 31, alkaline phosphatase 51, total protein 7, albumin 4.1, lactic acid 2.2, then 2.9. First set of cardiac biomarkers was within normal limits. Second set; creatine kinase 509, CK-MB 9.5, troponin I 0.01 and the third set; creatine kinase is 510, CK-MB 5, troponin I 0.013. Urinalysis showed trace amount of blood and rbc's 6-10, wbc's 6-10, many mucus. Coronavirus was not detected. Blood cultures x2 showed no growth after 48 hours. Final urine culture negative. Chest x-ray showed no focal pneumonia or pulmonary edema. CT of the chest showed subtle findings of bronchitis, coronary artery calcific atherosclerosis, small bilateral nonobstructive renal calculi, hepatomegaly with hepatic steatosis. Hemoglobin A1c was 5.5%. Final lactic acid was 1.4. Lipid levels were not elevated. He was on Zosyn and azithromycin for the sepsis and droplet isolation was removed once coronavirus test came back negative. Did not seem to have any ill affects from the inadvertent ingestion of [place]. Heart rate, now controlled and no longer in RVR. Hydrochlorothiazide was held and losartan was continued for high blood pressure. He was on a renal ADA diet due to his underlying chronic kidney disease stage 3 and diabetes due to left lower extremity swelling and redness. Bilateral lower extremity venous Doppler ultrasound was completed with no evidence of DVT. Today on the day of discharge, temperature 98.6, heart rate 73, blood pressure 139/64, respirations 18, and oxygen saturation 100%. Today's labs; WBC 6.56, hemoglobin 11.4, hematocrit 35.7, platelets 211. Sodium 142, potassium 3.8, chloride 107, CO2 of 27, anion gap 11.8, BUN 14, creatinine 1.37, estimated GFR 51. Per previous lab results, his best estimated GFR on 02/12/2016 was 57. Serum glucose today 95, calcium 8.4. Physical exam, generally unchanged, although his redness in his left lower extremity appears to be improving. The patient to continue renal ADA diet for now. Activity level as tolerated. Follow up with PCP, Dr. Donnelly in 1-2 weeks. Follow up with Dr. Griffiths in 3 weeks. Case was discussed with Dr. Griffiths. We will send him home on Keflex 500 mg p.o. q.i.d. for 10 days. Also, send him home on Lasix 20 mg p.o. daily, Tylenol p.r.n. for possible fever. Follow up with Dr. Jasso with Cardiology as needed. Dictated by Jason Ocasio NP Dale Robles MD [id number]/[id number] /[id number]
[2020-02-07] MEDS ORDERED: FUROSEMIDE 20 MG TAB PO SCH (09:00)
[2020-02-07] MEDS ORDERED: AZITHROMYCIN 250 MG TAB PO SCH (11:00)
== END 2020-02-06 16:51 | disposition home or self-care (01) | DRG 871 ==
LOC: ER 03:00 → ERHOLD 09:17 → MED/SURG3 15:06
PROVIDERS: ADMIT Internal Medicine; ATTEND Internal Medicine
DX: A41.9 Sepsis, unspecified organism (principal); J18.9 Pneumonia, unspecified organism; J44.1 Chronic obstructive pulmonary disease with (acute) exacerbation; N17.9 Acute kidney failure, unspecified; Z68.41 Body mass index [BMI] 40.0-44.9, adult; I13.0 Hypertensive heart and chronic kidney disease with heart failure and stage 1 through stage 4 chronic kidney disease, or unspecified chronic kidney disease; J44.0 Chronic obstructive pulmonary disease with (acute) lower respiratory infection; E87.2 Acidosis; E11.22 Type 2 diabetes mellitus with diabetic chronic kidney disease; N18.3 Chronic kidney disease, stage 3 (moderate); E66.01 Morbid (severe) obesity due to excess calories; I48.91 Unspecified atrial fibrillation; Z79.01 Long term (current) use of anticoagulants; Z11.59 Encounter for screening for other viral diseases; I25.10 Atherosclerotic heart disease of native coronary artery without angina pectoris; R16.0 Hepatomegaly, not elsewhere classified; K76.0 Fatty (change of) liver, not elsewhere classified; N20.0 Calculus of kidney; E78.00 Pure hypercholesterolemia, unspecified; I13.10 Hypertensive heart and chronic kidney disease without heart failure, with stage 1 through stage 4 chronic kidney disease, or unspecified chronic kidney disease; M19.91 Primary osteoarthritis, unspecified site; T40.2X1A Poisoning by other opioids, accidental (unintentional), initial encounter; Z88.2 Allergy status to sulfonamides
CPT/HCPCS: 36415; 71045; 71250; 80048; 80053; 80061; 81001; 82550; 82553; 83036; 83605; 83735; 84443; 84484; 85025; 87040; 87086; 87635; 93005; 93970; 94664; 97139; 99284; J0360; J0456; J1650; J2543; J7030

== ENCOUNTER 2020-11-14 20:20 | Emergency (ER) | payer MEDICARE, OTHER ==
[~2020-11-14] VITALS: Ht 175.3 cm; Wt 139.7 kg
[~2020-11-14 20:20] MED LIST changes: +ACETAMINOPHEN325 M1 PO; +FUROSEMIDE20 MG PO; +KEFLEX500 MG PO
== END 2020-11-14 20:55 | disposition home or self-care (01) ==
LOC: ER 20:42
DX: S51.812A Laceration without foreign body of left forearm, initial encounter (principal); W22.03XA Walked into furniture, initial encounter; Y93.01 Activity, walking, marching and hiking; Y92.008 Other place in unspecified non-institutional (private) residence as the place of occurrence of the external cause; I10 Essential (primary) hypertension; J44.9 Chronic obstructive pulmonary disease, unspecified; E66.9 Obesity, unspecified; Z87.442 Personal history of urinary calculi
CPT/HCPCS: 99282

== ENCOUNTER 2022-11-24 17:52 | Observation (INO) | payer MEDICARE, OTHER ==
[~2022-11-24] VITALS: Ht 175.3 cm; Wt 139.7 kg
[2022-11-24] MEDS ORDERED: ONDANSETRON HCL INJ 2MG/ML 2ML 2 MG/ML VIAL IV STA (18:33)
[2022-11-24 18:43] LABS: BASOPHILS % 0.2 % (0.0-1.0); EOSINOPHILS # (AUTO) 0.1 (0.0-0.4); EOSINOPHILS % 0.8 % (0.0-6.0); HEMATOCRIT 46.6 % (38.2-49.6); HEMOGLOBIN 15.5 g/dL (14.0-18.0); LYMPHOCYTES # (AUTO) 0.5 (1.0-3.2); LYMPHOCYTES % 3.4 % (18.0-39.1); MEAN CORPUSCULAR HEMOGLOBIN 32.2 pg (28-32); MEAN CORPUSCULAR HGB CONC 33.3 g/dL (31-35); MEAN CORPUSCULAR VOLUME 96.7 fL (81-99); MONOCYTES % 6.5 % (4.4-11.3); NEUTROPHILS # (AUTO) 13.7 (2.1-6.9); NEUTROPHILS % 88.9 % (38.7-80.0); PLATELET COUNT 224 x10e3/uL (140-360); RED BLOOD COUNT 4.82 x10e6/uL (4.3-5.7); RED CELL DISTRIBUTION WIDTH 14.3 % (11.7-14.4)
[2022-11-24] MEDS ORDERED: SODIUM CHLORIDE 0.9% 1000ML 1,000 ML IV ONE (18:45)
[2022-11-24 19:05] LABS: ALBUMIN 4.1 g/dL (3.5-5.0); ALBUMIN/GLOBULIN RATIO 1.2 (0.8-2.0); ANION GAP 17.5 mmol/L (8-16); CALCIUM 9.6 mg/dL (8.4-10.2); CREATININE, SERUM 1.48 mg/dL (0.72-1.25); POTASSIUM 4.5 mmol/L (3.5-5.1)
[2022-11-24] MEDS ORDERED: ONDANSETRON HCL INJ 2MG/ML 2ML 2 MG/ML VIAL IV PRN (21:45)
[2022-11-24] MEDS ORDERED: ACETAMINOPHEN 1000 MG/100 ML IV PRN (21:45)
[2022-11-24] MEDS: METRONIDAZOLE 500MG/NS 100ML 100 ML IV SCH (22:23)
[2022-11-24] MEDS: SODIUM CHLORIDE 0.9% 1000ML 1,000 ML IV SCH (22:24)
[2022-11-24] MEDS: Morphine 4mg INJECTION 4 MG/ML INJ IV PRN (22:29)
[2022-11-25] VITALS (11 sets, daily range): BP systolic 141–155; BP diastolic 61–76
[2022-11-25] MEDS ORDERED: ALLOPURINOL100 MG PO (02:05)
[2022-11-25] MEDS ORDERED: PRAMIPEXOLE D0.25 MG PO (02:05)
[2022-11-25] MEDS ORDERED: NIFEDIPINE ER30 M1 PO (02:05)
[2022-11-25] MEDS ORDERED: BENICAR20 MG PO (02:05)
[2022-11-25] MEDS ORDERED: HYDROCODON-ACE1 EAC9 (02:05)
[2022-11-25] MEDS ORDERED: ZANTAC-360 (FAM20 MG (02:05)
[2022-11-25] MEDS ORDERED: CENTRUM ADULTS1 EACH PO (02:05)
[2022-11-25] MEDS ORDERED: METOPROLOL SUCC50 MG PO (02:05)
[2022-11-25] MEDS: Morphine 4mg INJECTION 4 MG/ML INJ IV PRN ×4 (03:46→17:44)
[2022-11-25] MEDS: METRONIDAZOLE 500MG/NS 100ML 100 ML IV SCH ×3 (05:21→17:43)
[2022-11-25 05:53] LABS: BASOPHILS % 0.3 % (0.0-1.0); EOSINOPHILS # (AUTO) 0.2 (0.0-0.4); EOSINOPHILS % 2.5 % (0.0-6.0); HEMATOCRIT 37.4 % (38.2-49.6); HEMOGLOBIN 12.6 g/dL (14.0-18.0); LYMPHOCYTES # (AUTO) 1.7 (1.0-3.2); LYMPHOCYTES % 22.8 % (18.0-39.1); MEAN CORPUSCULAR HEMOGLOBIN 32.6 pg (28-32); MEAN CORPUSCULAR HGB CONC 33.7 g/dL (31-35); MEAN CORPUSCULAR VOLUME 96.9 fL (81-99); MONOCYTES # (AUTO) 0.8 (0.2-0.8); NEUTROPHILS # (AUTO) 4.6 (2.1-6.9); NEUTROPHILS % 63.1 % (38.7-80.0); PLATELET COUNT 198 x10e3/uL (140-360); RED BLOOD COUNT 3.86 x10e6/uL (4.3-5.7); RED CELL DISTRIBUTION WIDTH 14.4 % (11.7-14.4)
[2022-11-25 06:19] LABS: ALBUMIN 3.1 g/dL (3.5-5.0); ALBUMIN/GLOBULIN RATIO 1.2 (0.8-2.0); ANION GAP 13.1 mmol/L (8-16); CALCIUM 8.2 mg/dL (8.4-10.2); CREATININE, SERUM 1.38 mg/dL (0.72-1.25); POTASSIUM 4.1 mmol/L (3.5-5.1)
[2022-11-25] MEDS: SODIUM CHLORIDE 0.9% 1000ML 1,000 ML IV SCH (08:22)
[2022-11-25] MEDS: NIFEDIPINE CR 30 MG TAB PO SCH (17:43)
[2022-11-25] MEDS ORDERED: PRAMIPEXOLE DIHYDROCHLORIDE 0.25 MG TAB PO SCH (21:00)
[2022-11-25] MEDS ORDERED: CLONAZEPAM 1 MG TAB PO SCH (21:00)
[2022-11-25] MEDS: HYDROCODONE/APAP 10MG-325MG TAB PO PRN (22:27)
[2022-11-26 00:10] VITALS: BP 142/78
[2022-11-26] MEDS: METRONIDAZOLE 500MG/NS 100ML 100 ML IV SCH ×2 (00:21→06:42)
[2022-11-26] MEDS: HYDROCODONE/APAP 10MG-325MG TAB PO PRN (05:05)
[2022-11-26 05:15] VITALS: BP 166/76
[2022-11-26 05:23] LABS: BASOPHILS % 0.4 % (0.0-1.0); EOSINOPHILS # (AUTO) 0.4 (0.0-0.4); EOSINOPHILS % 5.7 % (0.0-6.0); HEMATOCRIT 43.1 % (38.2-49.6); HEMOGLOBIN 14.3 g/dL (14.0-18.0); LYMPHOCYTES # (AUTO) 1.7 (1.0-3.2); LYMPHOCYTES % 25.4 % (18.0-39.1); MEAN CORPUSCULAR HEMOGLOBIN 32.9 pg (28-32); MEAN CORPUSCULAR HGB CONC 33.2 g/dL (31-35); MEAN CORPUSCULAR VOLUME 99.1 fL (81-99); MONOCYTES # (AUTO) 0.7 (0.2-0.8); MONOCYTES % 9.9 % (4.4-11.3); NEUTROPHILS % 58.3 % (38.7-80.0); PLATELET COUNT 216 x10e3/uL (140-360); RED BLOOD COUNT 4.35 x10e6/uL (4.3-5.7); RED CELL DISTRIBUTION WIDTH 13.8 % (11.7-14.4)
[2022-11-26] MEDS: SODIUM CHLORIDE 0.9% 1000ML 1,000 ML IV SCH (05:37)
[2022-11-26 05:44] LABS: ANION GAP 13.7 mmol/L (8-16); CALCIUM 8.9 mg/dL (8.4-10.2); CREATININE, SERUM 1.29 mg/dL (0.72-1.25); MAGNESIUM 2.2 MG/DL (1.3-2.1); POTASSIUM 3.7 mmol/L (3.5-5.1)
[2022-11-26] MEDS ORDERED: BUDESONIDE/FORMOTEROL 160/4.5MCG INHALER INH SCH (06:00)
[2022-11-26 08:10] VITALS: BP 154/78
[2022-11-26] MEDS: NIFEDIPINE CR 30 MG TAB PO SCH (08:42)
[2022-11-26 08:51] VITALS: BP 154/78
[2022-11-26] MEDS ORDERED: OLMESARTAN 20 MG TAB PO SCH (09:00)
[2022-11-26] MEDS ORDERED: ALLOPURINOL 100 MG TAB PO SCH (09:00)
[2022-11-26] MEDS ORDERED: ASPIRIN 81 MG CHEW TAB PO SCH (09:00)
[2022-11-26] MEDS ORDERED: METOPROLOL SUCCINATE 50 MG TAB XL PO SCH (09:00)
== END 2022-11-26 11:41 | disposition home or self-care (01) ==
LOC: ER 18:22 → ERHOLD 21:45 → MED/SURG3 23:46
PROVIDERS: ADMIT Internal Medicine; ATTEND Internal Medicine
DX: K56.7 Ileus, unspecified (principal); K57.30 Diverticulosis of large intestine without perforation or abscess without bleeding; N17.9 Acute kidney failure, unspecified; I12.9 Hypertensive chronic kidney disease with stage 1 through stage 4 chronic kidney disease, or unspecified chronic kidney disease; N18.30 Chronic kidney disease, stage 3 unspecified; E86.0 Dehydration; G25.81 Restless legs syndrome; G89.4 Chronic pain syndrome; Z87.891 Personal history of nicotine dependence
CPT/HCPCS: 36415 ×3; 74018; 74176; 80048; 80053 ×2; 83690 ×2; 83735; 85025 ×3; 94799 ×2; 99284; C9113; G0378 ×3; J0131; J0696 ×2; J2270 ×2; J2405; J7030 ×3; U0002

== ENCOUNTER 2024-02-18 04:09 | Emergency (ER) | payer MEDICARE, OTHER ==
[~2024-02-18] VITALS: Ht 175.3 cm; Wt 139.7 kg
[~2024-02-18 04:09] MED LIST changes: +ALLOPURINOL100 MG PO; +BENICAR20 MG PO; +CENTRUM ADULTS1 EACH PO; +HYDROCODON-ACE1 EAC9; +METOPROLOL SUCC50 MG PO; +NIFEDIPINE ER30 M1 PO; +PRAMIPEXOLE D0.25 MG PO; +ZANTAC-360 (FAM20 MG
[2024-02-18 04:34] VITALS: PULSE 86; RESP 18; TEMP 98.2; O2SAT 98
[2024-02-18] MEDS ORDERED: MEDROL4 M2 PO (04:40)
== END 2024-02-18 05:05 | disposition home or self-care (01) ==
LOC: ER 04:15
DX: M79.604 Pain in right leg (principal); I89.0 Lymphedema, not elsewhere classified; I10 Essential (primary) hypertension; J44.9 Chronic obstructive pulmonary disease, unspecified; E66.9 Obesity, unspecified; Z87.19 Personal history of other diseases of the digestive system; Z87.442 Personal history of urinary calculi
CPT/HCPCS: 99282